=== PATIENT | female | born 1950 | race Caucasian/White ===

== ENCOUNTER 2025-07-23 13:53 | Inpatient (IN) | payer MEDICARE, SELFPAY ==
[2025-07-23] VITALS (11 sets, daily range): BP systolic 141–203; BP diastolic 77–131; PULSE 109–138; RESP 17–22; TEMP 36.5–36.9; O2SAT 90–95; BMI 29.0; BMI 29.8
--- NOTE | 2025-07-23 14:11 | W.ED.NAVMDI ---
HPI - Nausea/Vomiting/Diarrhea General: Chief complaint: Nausea/Vomiting/Diarrhea Stated complaint: NVD Time Seen by Provider: 07/23/25 13:55 History of Present Illness: 75-year-old female returns emergency room with complaints of persistent nausea vomiting began 3 days ago. She has taken Vistaril and Xanax with no relief. She has continued to have bowel movements for this time she had a couple of loose bowel movements last day and a half has been formed stools. Previous abdominal surgeries include appendectomy and bowel obstruction x 2. No hematemesis or coffee-ground emesis. No fever sweats chills no dysuria urgency or frequency Associated nausea: Yes Associated symtoms: Reports bloating and nausea; Denies chest pain or dysuria Related Data Home Medications ?Medication ?Instructions ?Recorded ?Confirmed alprazolam 0.25 mg tablet 0.25 mg PO QID 07/23/25 07/23/25 atorvastatin 10 mg tablet 10 mg PO DAILY 07/23/25 07/23/25 cyclobenzaprine 5 mg tablet 5 mg PO TID PRN Muscle Spasm 07/23/25 07/23/25 duloxetine 60 mg capsule,delayed 60 mg PO DAILY 07/23/25 07/23/25 release gabapentin 300 mg capsule 300 mg PO BID 07/23/25 07/23/25 glimepiride 2 mg tablet 2 mg PO DAILY 07/23/25 07/23/25 hydroxyzine HCl 25 mg tablet 25 mg PO QID PRN Anxiety 07/23/25 07/23/25 losartan 50 mg tablet 50 mg PO DAILY 07/23/25 07/23/25 metformin 500 mg tablet,extended 500 mg PO BID 07/23/25 07/23/25 release 24 hr metoprolol tartrate 50 mg tablet 50 mg PO BID 07/23/25 07/23/25 nitroglycerin 0.4 mg sublingual 0.4 mg sublingual .Q5MIN PRN 07/23/25 07/23/25 tablet unstable angina omeprazole 20 mg capsule,delayed 20 mg PO DAILY 07/23/25 07/23/25 release semaglutide 2 mg/dose (8 mg/3 mL) 8 mg SUBCUT Q7D 07/23/25 07/23/25 subcutaneous pen injector (Ozempic) tramadol 50 mg tablet 50 - 100 mg PO QID PRN Pain 07/23/25 07/23/25 venlafaxine 150 mg 150 mg PO DAILY 07/23/25 07/23/25 capsule,extended release 24 hr Allergies Allergy/AdvReac Type Severity Reaction Status Date / Time erythromycin base Allergy ADR-Gastrointestinal Verified 07/23/25 14:00 Upset Review of Systems Const: Denies: fever(s) or chills Card: Denies: chest pain Resp: Denies: dyspnea GI: Reports: abdominal pain, nausea, vomiting and bloating; Denies: hematemesis, coffee ground emesis, hematochezia or melena : Denies: dysuria, urinary frequency or urinary urgency Musc: Denies: neck pain or back pain Skin/Breast: Denies: rash Physical Exam Const: COMMON NORMALS: no acute distress GENERAL APPEARANCE: cooperative and comfortable ORIENTATION/CONSCIOUSNESS: Yes awake, Yes oriented to person, Yes oriented to place and Yes oriented to time HENMT: COMMON NORMALS: normocephalic, atraumatic and hearing grossly normal bilaterally HEAD & SCALP: normocephalic and atraumatic Resp: COMMON NORMALS: normal respiratory effort, No retractions, No use of accessory muscles and clear to auscultation bilaterally AUSCULTATION: clear to auscultation bilaterally Cardio: COMMON NORMALS: regular rate, regular rhythm and No murmurs present (Cardio) RATE: regular rate RHYTHM: regular rhythm GI: COMMON NORMALS: Soft to palpation and No hepatosplenomegaly present AUSCULTATION: Yes normoactive bowel sounds PALPATION: Yes Soft to palpation, No Tenderness to palpation present (GI), No Guarding due to palpation present (GI) and Yes No hepatosplenomegaly present Extremity: COMMON NORMALS: normal to inspection, capillary refill normal, no clubbing, cyanosis or edema, no calf tenderness and no pedal edema Neuro: SENSORIUM/ORIENTATION: Yes oriented to person, Yes oriented to place and Yes oriented to time Skin: COMMON NORMALS: no rashes or lesions noted GENERAL SKIN EXAM: no rashes or lesions noted Course Vital Signs: Vital signs: Vital Signs Temperature 97.7 F 07/23/25 13:55 Pulse Rate 128 H 07/23/25 17:32 Respiratory Rate 18 07/23/25 17:21 Blood Pressure 163/104 07/23/25 17:32 Pulse Oximetry 94 07/23/25 17:32 Oxygen Delivery Me thod Room Air 07/23/25 13:55 MDM - Nausea/Vomiting/Diarrhea Medical Decision Making Flat and upright shows questionable loops of bowel CT was ordered along with lactic acid. Patient was persistently tachycardic even after initial dose of fluids. Lactic acid elevated at 2.9 follow-up was 2.6 after fluids she has been given sepsis fluid bolus started on Zosyn and cultures were done she has a partial bowel obstruction. Discussed with surgery as well as with hospitalist will admit to the [facility] NG to be placed. Dr. Deutsch will see. Orders are written. Medical Records I reviewed the patient's medical records. Lab Data I reviewed the patient's lab results. 07/23/25 14:13 07/23/25 14:13 Radiology Impressions Chest/Abdomen X-ray 07/23/25 14:24 IMPRESSION: 1. Single mildly dilated, gas-filled loop of small bowel in the central abdomen. The nonspecific appearance could reflect ileus, enteritis or early/partial obstruction. 2. No acute disease otherwise identified. Abdomen/Pelvis CT 07/23/25 15:41 IMPRESSION: A localized group of distended small bowel containing gas and fluid levels is present in the left mid abdomen. The appearance raises concern for a paraduodenal hernia, without complete obstruction. Continued evaluation can include small bowel follow-through and/or close clinical and imaging follow-up. Laboratory Results WBC 10.68 10^3/uL (3.29-11.43) 07/23/25 14:13 RBC 4.84 10^6/uL (3.85-5.65) 07/23/25 14:13 Hgb 14.10 g/dL (11.27-16.99) 07/23/25 14:13 Hct 42.8 % (36-47) 07/23/25 14:13 MCV 88.4 fl (85-98) 07/23/25 14:13 MCH 29.1 pg (27-33) 07/23/25 14:13 MCHC 32.9 g/dL (30-55) 07/23/25 14:13 RDW 12.7 % (12.1-15.1) 07/23/25 14:13 Plt Count 340 10^3/cmm (157-399) 07/23/25 14:13 MPV 10.0 fL (7.4-10.4) 07/23/25 14:13 Neut % (Auto) 73.0 % 07/23/25 14:13 Lymph % (Auto) 18.9 % 07/23/25 14:13 Perry % (Auto) 6.6 % 07/23/25 14:13 Eos % (Auto) 0.3 % 07/23/25 14:13 Baso % (Auto) 0.7 % 07/23/25 14:13 Neut # (Auto) 7.79 10^3/uL (1.8-7.7) H 07/23/25 14:13 Lymph # (Auto) 2.0 10^3/uL (0.8-4.8) 07/23/25 14:13 Perry # (Auto) 0.7 10^3/uL (0.2-0.9) 07/23/25 14:13 Eos # (Auto) 0.0 10^3/uL (0.0-0.8) 07/23/25 14:13 Baso # (Auto) 0.1 10^3/uL (0.0-0.1) 07/23/25 14:13 Nucleated RBC % (auto) 0 % 07/23/25 14:13 Nucleated RBCs # 0.0 /100WBC 07/23/25 14:13 Sodium 137 mmol/L (136-145) 07/23/25 14:13 Potassium 3.6 mmol/L (3.5-5.1) 07/23/25 14:13 Chloride 97 mmol/L (98-107) L 07/23/25 14:13 Carbon Dioxide 23 mmol/L (22-29) 07/23/25 14:13 Anion Gap 20.6 (5-19) H 07/23/25 14:13 BUN 11 mg/dL (8-23) 07/23/25 14:13 Creatinine 1.0 mg/dL (0.5-0.9) H 07/23/25 14:13 GFR Calculation Not Reportable 07/23/25 14:13 Glucose 283 mg/dL (65-115) H 07/23/25 14:13 POC Glucose 281 mg/dL (70-110) H 07/23/25 14:41 Calculated Osmolality 294 mOsm/kg (285-295) 07/23/25 14:13 Lactic Acid 2.9 mmol/L (0.5-2.2) H 07/23/25 14:13 Lactic Acid (Sepsis) 2.6 mmol/L (0.5-2.2) H 07/23/25 15:50 Calcium 10.1 mg/dL (8.5-10.5) 07/23/25 14:13 Total Bilirubin 0.4 mg/dL (0.15-1.2) 07/23/25 14:13 AST 17 U/L (0-32) 07/23/25 14:13 ALT 14 U/L (0-33) 07/23/25 14:13 Alkaline Phosphatase 147 U/L (35-105) H 07/23/25 14:13 Total Protein 8.5 g/dL (6.6-8.7) 07/23/25 14:13 Albumin 4.3 g/dL (3.5-5.2) 07/23/25 14:13 Globulin 4.2 g/dL (1.3-4.6) 07/23/25 14:13 Lipase 23 U/L (13-60) 07/23/25 14:13 Urine Color Yellow (Yellow) 07/23/25 15: Urine Appearance Cloudy (CLEAR) A 07/23/25: Urine pH 6.0 (5-7) 07/23/25 15: Ur Specific [place] 1.019 (1.005-1.030) 07/23/25: Urine Protein 1+ (Negative) A 07/23/25 Urine Glucose (UA) Trace (Normal) H 07/23/25: Urine Ketones 2+ (Negative) H 07/23/25: Urine Blood Negative (Negative) 07/23/25: Urine Nitrate Negative (Negative) 07/23/25: Urine Bilirubin Negative (Negative) 07/23/25 Urine Urobilinogen 1.0 mg/dL (Negative) 07/23/25: Ur Leukocyte Esterase 2+ (Negative) A 07/23/25: Urine RBC 0-2 /hpf (0-2) 07/23/25: Urine WBC 0-5 /hpf (0-5) 07/23/25 15:23 Ur Squamous Epith Cells 11-20 /hpf (0-5) H 07/23/25 15:23 Amorphous Sediment Not Reportable 07/23/25 15:23 Urine Bacteria None seen /hpf (NONE) 07/23/25 15:23 Hyaline Casts 21.92 /lpf 07/23/25 15:23 All radiology interpretation(s) finalized by discharge EKG Data EKG 1: I personally reviewed and interpreted this EKG as follows: Interpretation: EKG 07/23/2025 1420 sinus tachycardia with PVCs rate of 133 MI interval [address] changes noted. 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
[2025-07-23 14:20] LABS: Hematocrit 42.8 % (36-47); Hemoglobin 14.10 g/dL (11.27-16.99); Mean Corpuscular HGB Conc 32.9 g/dL (30-55); Mean Corpuscular Hemoglobin 29.1 pg (27-33); Mean Corpuscular Volume 88.4 fl (85-98); Nucleated Red Blood Cells % 0 %; Platelet Count 340 10^3/cmm (157-399); Red Blood Count 4.84 10^6/uL (3.85-5.65); White Blood Count 10.68 10^3/uL (3.29-11.43)
--- NOTE | 2025-07-23 14:20 | ECG_ITS ---
[employer] Test Date: 2025-07-23 Pat Name: Sherry Garcia Department: Room: Gender: Female Integration Assistant: : 1950 Requested By: Sd Cardona Order Number: [id number] Nury MD: Scott Marx M.D. Measurements Intervals [place] Rate: 133 P: 62 OH: 138 QRS: 2 QRSD: 78 T: 66 QT: 333 QTc: 497 Interpretive Statements SINUS TACHYCARDIA WITH OCCASIONAL VENTRICULAR PREMATURE COMPLEXES LOW QRS VOLTAGE IN PRECORDIAL LEADS [QRS DEFLECTION < 1.0 mV IN CHEST LEADS] NONSPECIFIC ST & T-WAVE ABNORMALITY ABNORMAL RHYTHM ECG No previous ECG available for comparison Electronically Signed On 07-24-2025 15:21:54 FUNDING ANALYST by Scott Marx M.D. [email or web address]
--- NOTE | 2025-07-23 14:24 | XRR_ITS ---
PROCEDURE INFORMATION: Exam: XR Complete Acute Abdomen Series Including Chest Exam date and time: 07/23/2025 2:41 PM Age: 75 years old Clinical indication: Abdominal tenderness and nausea and vomiting; Prior surgery; Surgery date: 6+ months; Surgery type: Appy, small bowel resection x 2; Additional info: Nausea/vomiting; Weakeness; Abdominal pain x 3 days TECHNIQUE: Imaging protocol: Radiologic exam. Complete acute abdomen series, including 2 or more views of the abdomen and a single view chest. COMPARISON: No relevant prior studies available. FINDINGS: Lungs: Normal. No consolidation. Pleural spaces: Normal. No pleural effusions. No pneumothorax. Heart/Mediastinum: Normal. No cardiomegaly. Gastrointestinal tract: Single mildly dilated, gas-filled loop of small bowel in the central abdomen. No other bowel dilatation. Intraperitoneal space: No free intraperitoneal gas. Abdominal mass is not identified. Bones/joints: Severe degenerative disc disease at L3-L4 and L4-L5. Previous cervical spine surgery. Soft tissues: Normal. XR/XR acute abdomen series [id number] IMPRESSION: 1. Single mildly dilated, gas-filled loop of small bowel in the central abdomen. The nonspecific appearance could reflect ileus, enteritis or early/partial obstruction. 2. No acute disease otherwise identified.
[2025-07-23 14:40] LABS: Alanine Aminotransferase 14 U/L (0-33); Albumin Level 4.3 g/dL (3.5-5.2); Alkaline Phosphatase 147 U/L (35-105); Anion Gap 20.6 (5-19); Aspartate Amino Transferase 17 U/L (0-32); Blood Urea Nitrogen 11 mg/dL (8-23); Calcium 10.1 mg/dL (8.5-10.5); Carbon Dioxide 23 mmol/L (22-29); Chloride 97 mmol/L (98-107); Globulin 4.2 g/dL (1.3-4.6); Glucose 283 mg/dL (65-115); Osmolality Calculated 294 mOsm/kg (285-295); Potassium 3.6 mmol/L (3.5-5.1); Sodium 137 mmol/L (136-145); Total Protein 8.5 g/dL (6.6-8.7)
[2025-07-23] MEDS: ondansetron 2 mg/ML SDV 2 mL 4 MG IVP ×2 (14:42→17:58)
[2025-07-23 15:32] LABS: Glucose Urine UA Trace (Normal); Nitrate Urine Negative (Negative); Specific Gravity, Urine 1.019 (1.005-1.030)
[2025-07-23 15:37] LABS: Add Urine Microscopic? YES
--- NOTE | 2025-07-23 15:41 | CTR_ITS ---
PROCEDURE INFORMATION: Exam: CT Abdomen And Pelvis With Contrast Exam date and time: 07/23/2025 3:57 PM Age: 75 years old Clinical indication: Abdominal pain; Generalized; Prior surgery; Surgery date: 6+ months; Surgery type: Bowel obstruction; Additional info: Abd pain TECHNIQUE: Imaging protocol: Computed tomography of the abdomen and pelvis with contrast. Radiation optimization: All CT scans at this facility use at least one of these dose optimization techniques: automated exposure control; mA and/or kV adjustment per patient size (includes targeted exams where dose is matched to clinical indication); or iterative reconstruction. Contrast material: OMNIPAQUE 350; Contrast volume: 100 ml; Contrast route: INTRAVENOUS (IV); COMPARISON: CR XR acute abdomen series [id number] 07/23/2025 2:41 PM RADIATION DOSE METRICS: Total DLP (mGy-cm): 768.63 FINDINGS: Lungs: 4 mm calcified granuloma in the right lower lobe, requiring no follow-up. Liver: Normal. No mass. Gallbladder and biliary ducts: Normal. No calcified stones. No ductal dilation. Pancreas: Normal. No ductal dilation. Spleen: Normal. No splenomegaly. Adrenal glands: Normal. No mass. Kidneys and ureters: Normal. No hydronephrosis. Stomach and bowel: A localized group of distended small bowel containing gas and fluid levels is present in the left mid abdomen. No other bowel dilatation. No pericolonic or perienteric inflammatory changes. Appendix: No evidence of appendicitis. Intraperitoneal space: Unremarkable. No free air. No significant fluid collection. Vasculature: Unremarkable. No abdominal aortic aneurysm. Lymph nodes: Unremarkable. No enlarged lymph nodes. Urinary bladder: Unremarkable as visualized. Reproductive: Unremarkable as visualized. Bones/joints: Severe degenerative disc disease at L3-L4, L4-L5 and L5-S1. Soft tissues: Benign-appearing calcifications in both breasts. CT/CT abdomen pelvis w con* [id number] IMPRESSION: A localized group of distended small bowel containing gas and fluid levels is present in the left mid abdomen. The appearance raises concern for a paraduodenal hernia, without complete obstruction. Continued evaluation can include small bowel follow-through and/or close clinical and imaging follow-up.
[2025-07-23 15:49] LABS: UA Slide Review UA Slide Review Perf
[2025-07-23 15:57] LABS: Lactic Sepsis W/Reflex 2.9 mmol/L (0.5-2.2)
[2025-07-23 15:58] LABS: Lipase 23 U/L (13-60); Reflex Lactate Order REFLEX LACTIC ORDERD
[2025-07-23] MEDS: iohexol 350 mg/mL 500 mL Btl (per mL) IV (16:01)
[2025-07-23 16:21] LABS: Lactic Acid level (Lactate) 2.6 mmol/L (0.5-2.2)
[2025-07-23] MEDS: piperacillin-tazobactam 3.375 GM in sodium chloride 0.9% (plus) 50 ML IV (16:45)
--- NOTE | 2025-07-23 18:05 | XRR_ITS ---
PROCEDURE INFORMATION: Exam: XR Chest Exam date and time: 07/23/2025 7:08 PM Age: 75 years old Clinical indication: Device placement; Ng tube; Additional info: Ng placement TECHNIQUE: Imaging protocol: Radiologic exam of the chest. Views: 1 view. COMPARISON: CR XR acute abdomen series [id number] 07/23/2025 2:41 PM FINDINGS: Tubes, catheters and devices: Interval placement of an NG tube, with the tip approximating the body of the stomach. Lungs: Interval development of mild interstitial thickening which represents atelectatic, compressive changes or mild edema. Pleural spaces: Unremarkable. No pleural effusion. No pneumothorax. Heart/Mediastinum: Unremarkable. No cardiomegaly. Bones/joints: Unremarkable. XR/XR chest 1V portable [id number] IMPRESSION: 1. Interval development of mild interstitial thickening which represents atelectatic, compressive changes or mild edema. Developing left lung base infiltrate is a possibility. 2. NG tube in place.
[2025-07-23] MEDS: morphine 4 mg/mL SDV 1 mL IVP (18:10)
--- NOTE | 2025-07-23 18:17 | PM.CONSULT ---
Providers/Reason For Consult Consulting Physician/Specialty*: General Surgery Reason for Consult*: Possible paraduodenal hernia Attending Physician: Alli Blackwell MD Primary Care Provider: Robert Vo MD History of Present Illness History of Present Illness Sherry Garcia is a 75 year old female Who presents to the hospital with 3 days of nausea and vomiting. Denies significant abdominal pain, has been passing gas and has been passing his stool last bowel movement was today and currently passing gas. According to the patient she has been having multiple episodes of nausea and vomiting. Has not been able to take her BP meds. She has extensive surgical history, had an appendectomy in the remote past and after that had 2 episodes of SBO both of them required surgery and according to the patient bowel resection. Last episode of SBO was 1997. Review of Systems General: Reports: 10 or more systems reviewed and unremarkable except in HPI and below Medications/Allergies Home Medications ?Medication ?Instructions ?Recorded ?Confirmed ?Last Taken ?Type alprazolam 0.25 mg tablet 0.25 mg PO QID 07/23/25 07/23/25 07/20/25 History atorvastatin 10 mg tablet 10 mg PO DAILY 07/23/25 07/23/25 07/20/25 History cyclobenzaprine 5 mg tablet 5 mg PO TID PRN Muscle Spasm 07/23/25 07/23/25 Unknown History duloxetine 60 mg capsule,delayed 60 mg PO DAILY 07/23/25 07/23/25 07/20/25 History release gabapentin 300 mg capsule 300 mg PO BID 07/23/25 07/23/25 07/20/25 History glimepiride 2 mg tablet 2 mg PO DAILY 07/23/25 07/23/25 07/20/25 History hydroxyzine HCl 25 mg tablet 25 mg PO QID PRN Anxiety 07/23/25 07/23/25 Unknown History losartan 50 mg tablet 50 mg PO DAILY 07/23/25 07/23/25 07/20/25 History metformin 500 mg tablet,extended 500 mg PO BID 07/23/25 07/23/25 07/20/25 History release 24 hr metoprolol tartrate 50 mg tablet 50 mg PO BID 07/23/25 07/23/25 07/20/25 History nitroglycerin 0.4 mg sublingual 0.4 mg sublingual .Q5MIN PRN 07/23/25 07/23/25 Unknown History tablet unstable angina omeprazole 20 mg capsule,delayed 20 mg PO DAILY 07/23/25 07/23/25 07/20/25 History release semaglutide 2 mg/dose (8 mg/3 mL) 8 mg SUBCUT Q7D 07/23/25 07/23/25 07/22/25 History subcutaneous pen injector (Ozempic) tramadol 50 mg tablet 50 - 100 mg PO QID PRN Pain 07/23/25 07/23/25 Unknown History venlafaxine 150 mg 150 mg PO DAILY 07/23/25 07/23/25 07/20/25 History capsule,extended release 24 hr Allergies Allergy/AdvReac Type Severity Reaction Status Date / Time erythromycin base Allergy ADR-Gastrointestinal Verified 07/23/25 14:00 Upset Current Medications Generic Name Dose Route Start Last Admin Trade Name Freq PRN Reason Stop Dose Admin Sodium Chloride 1,000 mls @ 150 mls/hr 07/23/25 17:43 07/23/25 18:13 Sodium Chloride 0.9% IV 150 mls/hr .Q6H40M ZOHAIB Administration Morphine Sulfate 4 mg 07/23/25 17:43 07/23/25 18:10 Morphine 4 Mg/Ml Sdv 1 Ml IVP 4 mg Q4H PRN Administration SEVERE PAIN Ondansetron HCl 4 mg 07/23/25 17:43 07/23/25 17:58 Ondansetron 2 Mg/Ml Sdv 2 Ml IVP 4 mg Q6H PRN Administration NAUSEA AND VOMITING Vitals/I&O/Wt Last Vital Signs Temp 97.7 F 07/23/25 13:55 Pulse 128 H 07/23/25 17:32 Resp 20 H 07/23/25 18:10 BP 163/104 07/23/25 17:32 Pulse Ox 94 07/23/25 17:32 O2 Del Method Room Air 07/23/25 13:55 07/23/25 07/23/25 07/23/25 06:59 14:59 22:59 Intake Total 3499.41 / 3499.41 Balance 3499.41 / 3499.41 Weight last 48 hrs Weight 180 lb Physical Exam GI: OTHER: Abdominal examination is benign the abdomen is soft is nontender is nondistended there is bowel sounds. Data 07/23/25 14:13 07/23/25 14:13 A&P Assessment and plan 1. Intestinal adhesions with partial obstruction: Plan: I had extensive discussion with the patient regarding the symptoms as well as the findings. After complete history physical examination review of available clinical data the following is my assessment. It is unlikely that the patient symptoms are caused by a paraduodenal hernia. I have reviewed the imaging several times and I failed to identify any area of concern where a paraduodenal hernia may have a core. Laboratory workup is almost unremarkable except for mild elevation of the lactate. She is hypertensive and also tachycardic but has not been able to take her blood pressure medications and anxiety medication at home which is concordant with the findings. I agree with NG tube decompression, depending on the output of the NG tube we most likely will proceed with a Gastrografin trial tomorrow morning to evaluate for any possible sources of obstruction. 18 Thai NG tube was placed at the bedside without complications. After initial decompression and fluid resuscitation will continue to monitor labs and abdominal exam, in the case of clinical status changes we may have to discuss the possibility of surgery although I think the likelihood of needing surgical intervention at this point is low as patient clinical picture does not match a significant bowel obstruction or bowel suffering. All other management per medical team. I would recommend we keep the patient in a strict n.p.o. all medications should be given through the IV, continue NG tube to low intermittent suction. Continue to monitor labs, agree with antibiotic therapy empirically. General surgery will continue to follow. PDMP PDMP Reviewed: Not Reviewed Coding Level of Care Code Acute Code for [facility] Fw Diagnoses Intestinal adhesions with partial obstruction K56.51
[2025-07-23] MEDS: LORazepam 2 mg/mL INJ 1 mL 1 MG IVP (18:41)
--- NOTE | 2025-07-23 18:57 | PM.HP ---
Providers/Chief Complaint Admitting Physician: Alli Blackwell MD Primary Care Provider: Robert Vo MD Chief Complaint: NVD History of Present Illness Sherry Garcia is a 75 year old female with prior medical history of HTN, DM, intestinal adhesions with partial obstruction presenting with complaints of abdominal pain. Patient has past history of SBO requiring surgery, last episode was in 1997. She has also had an appendectomy. For this encounter, patient endorses abdominal pain x3 days, nausea, and vomiting. She is passing flatus. Last BM was today. In the ED, BP 163/104, HR 128, RR 20, O2 94%, T97.7. WBC 10.68, Hgb 14.10, PLT 340. Creatinine 1.0, BUN 11, WNL. Lactic 2.9. Glucose 283. AST/ALT WNL, ALP 147. Urinalysis; cloudy, 1+ protein, trace urine glucose, 2+ ketones, 2+ leukocytes, 0?[address] abdomen pelvis, abdominal xray, CXR completed - see full results. Will admit to Hospitalist Service for further evaluation and treatment. Abdominal xray; Single mildly dilated, gas-filled loop of small bowel in the central abdomen, nonspecific appearance could reflect ileus, enteritis or early/partial obstruction, no acute disease otherwise identified CT abdomen pelvis; A localized group of distended small bowel containing gas and fluid levels is present in the left mid abdomen, the appearance raises concern for a para-duodenal hernia, without complete obstruction, continued evaluation can include small bowel follow-through and/or close clinical and imaging follow-up. CXR; Interval development of mild interstitial thickening which represents atelectatic, compressive changes or mild edema, developing left lung base infiltrate is a possibility, NG tube in place. Review of Systems Const: Denies: fever(s) or chills Card: Denies: chest pain Resp: Denies: dyspnea GI: Reports: abdominal pain, nausea, vomiting and bloating; Denies: hematemesis, coffee ground emesis, hematochezia or melena : Denies: dysuria, urinary frequency or urinary urgency Musc: Denies: neck pain or back pain Skin/Breast: Denies: rash Medications/Allergies Home Medications ?Medication ?Instructions ?Recorded ?Confirmed ?Last Taken ?Type alprazolam 0.25 mg tablet 0.25 mg PO QID 07/23/25 07/23/25 07/20/25 History atorvastatin 10 mg tablet 10 mg PO DAILY 07/23/25 07/23/25 07/20/25 History cyclobenzaprine 5 mg tablet 5 mg PO TID PRN Muscle Spasm 07/23/25 07/23/25 Unknown History duloxetine 60 mg capsule,delayed 60 mg PO DAILY 07/23/25 07/23/25 07/20/25 History release gabapentin 300 mg capsule 300 mg PO BID 07/23/25 07/23/25 07/20/25 History glimepiride 2 mg tablet 2 mg PO DAILY 07/23/25 07/23/25 07/20/25 History hydroxyzine HCl 25 mg tablet 25 mg PO QID PRN Anxiety 07/23/25 07/23/25 Unknown History losartan 50 mg tablet 50 mg PO DAILY 07/23/25 07/23/25 07/20/25 History metformin 500 mg tablet,extended 500 mg PO BID 07/23/25 07/23/25 07/20/25 History release 24 hr metoprolol tartrate 50 mg tablet 50 mg PO BID 07/23/25 07/23/25 07/20/25 History nitroglycerin 0.4 mg sublingual 0.4 mg sublingual .Q5MIN PRN 07/23/25 07/23/25 Unknown History tablet unstable angina omeprazole 20 mg capsule,delayed 20 mg PO DAILY 07/23/25 07/23/25 07/20/25 History release semaglutide 2 mg/dose (8 mg/3 mL) 8 mg SUBCUT Q7D 07/23/25 07/23/25 07/22/25 History subcutaneous pen injector (Ozempic) tramadol 50 mg tablet 50 - 100 mg PO QID PRN Pain 07/23/25 07/23/25 Unknown History venlafaxine 150 mg 150 mg PO DAILY 07/23/25 07/23/25 07/20/25 History capsule,extended release 24 hr Allergies Allergy/AdvReac Type Severity Reaction Status Date / Time erythromycin base Allergy ADR-Gastrointestinal Verified 07/23/25 14:00 Upset Vitals/I&O/Wt Last Vital Signs Temp 98.1 F 07/23/25 18:44 Pulse 127 H 07/23/25 18:44 Resp 18 07/23/25 18:44 BP 203/131 07/23/25 18:44 Pulse Ox 95 07/23/25 18:44 O2 Del Method Room Air 07/23/25 18:44 07/23/25 07/23/25 07/23/25 06:59 14:59 22:59 Intake Total 3499.41 / 3499.41 Balance 3499.41 / 3499.41 Weight last 48 hrs Weight 83.906 kg Weight 81.647 kg Physical Exam Const: COMMON NORMALS: patient oriented x3 and alert HENMT: COMMON NORMALS: normocephalic and atraumatic Eye: COMMON NORMALS: Equal, round and reactive pupils present and EOMs intact bilaterally Neck/C-Spine: COMMON NORMALS: full ROM Chest: COMMONS NORMALS: normal inspection of the chest GI: OTHER: Soft, non tender, but bloated Back/Pelvis: COMMON NORMALS: no CVA tenderness Neuro: COMMON NORMALS: patient oriented x3 Psych: COMMON NORMALS: mental status grossly normal Data 07/23/25 14:13 07/23/25 14:13 A&P Assessment and plan 1. Hypertension: Today 163/104, HR 128 On home Metoprolol and losartan - hold PO meds Collaborated with [facility] [phone] for Labetalol IV Monitor BP 2. Diabetes mellitus: Glucose 283 On home metformin, Ozempic, glimepiride - hold for now A1c pending Hyperglycemia/hypoglycemia protocol 3. Intestinal adhesions with partial obstruction: WBC 10.68, Hgb 14.10, PLT 340 Lactic 2.9 IVF Pain management Zosyn Strict NPO -holding meds until AM procedure, IV meds placed by ED and General Surgery Decompression 18 Fr NG-tube and NG-tube management daily Repeat lactic in AM General Surgery consulted, recommendations appreciated Planning for gastrografin trial tomorrow morning to evaluate for any possible sources of obstruction Abdominal xray; Single mildly dilated, gas-filled loop of small bowel in the central abdomen, nonspecific appearance could reflect ileus, enteritis or early/partial obstruction, no acute disease otherwise identified CT abdomen pelvis; A localized group of distended small bowel containing gas and fluid levels is present in the left mid abdomen, the appearance raises concern for a para-duodenal hernia, without complete obstruction, continued evaluation can include small bowel follow-through and/or close clinical and imaging follow-up. CXR; Interval development of mild interstitial thickening which represents atelectatic, compressive changes or mild edema, developing left lung base infiltrate is a possibility, NG tube in place. 4. Nausea and vomiting: Zofran I&O PDMP PDMP Reviewed: Not Reviewed Attestations Medical Necessity Statement*: Continued hospitalization for > 2 midnights to monitor for partial bowel obstruction, decompression, general surgery planning, pain management, and general medical management. Diagnoses Hypertension I10 Diabetes mellitus E11.9 Intestinal adhesions with partial obstruction K56.51 Nausea and vomiting R11.2 Comment 70
[2025-07-23] MEDS: labetalol 5 mg/mL SDV 20mL 20 MG IVP (20:41)
[2025-07-23] MEDS: phenol oral Spray 177 mL 5 SPRAY MUCOUS MEM (20:55)
[2025-07-24] VITALS (14 sets, daily range): BP systolic 100–157; BP diastolic 58–113; PULSE 105–129; RESP 16–18; TEMP 36.4–37; O2SAT 91–96
[2025-07-24] MEDS: morphine 4 mg/mL SDV 1 mL IVP ×2 (00:02→08:08)
[2025-07-24] MEDS: piperacillin-tazobactam 3.375 GM in sodium chloride 0.9% (plus) 50 ML IV ×3 (00:03→16:44)
[2025-07-24] MEDS: ondansetron 2 mg/ML SDV 2 mL 4 MG IVP ×3 (00:03→16:45)
--- NOTE | 2025-07-24 01:21 | PC.NURSE ---
no decub, no open sores, PIV CDI- no redness, flushes well
[2025-07-24 04:00] LABS: Hematocrit 36.2 % (36-47); Hemoglobin 11.60 g/dL (11.27-16.99); Mean Corpuscular HGB Conc 32.0 g/dL (30-55); Mean Corpuscular Hemoglobin 29.2 pg (27-33); Mean Corpuscular Volume 91.2 fl (85-98); Nucleated Red Blood Cells % 0 %; Platelet Count 337 10^3/cmm (157-399); Red Blood Count 3.97 10^6/uL (3.85-5.65); White Blood Count 10.37 10^3/uL (3.29-11.43)
[2025-07-24 04:19] LABS: Alanine Aminotransferase 10 U/L (0-33); Albumin Level 3.5 g/dL (3.5-5.2); Alkaline Phosphatase 116 U/L (35-105); Anion Gap 12.6 (5-19); Aspartate Amino Transferase 16 U/L (0-32); Blood Urea Nitrogen 9 mg/dL (8-23); Calcium 8.4 mg/dL (8.5-10.5); Carbon Dioxide 26 mmol/L (22-29); Chloride 107 mmol/L (98-107); Globulin 3.1 g/dL (1.3-4.6); Glucose 191 mg/dL (65-115); Magnesium 1.5 mg/dL (1.7-2.3); Osmolality Calculated 298 mOsm/kg (285-295); Potassium 3.6 mmol/L (3.5-5.1); Sodium 142 mmol/L (136-145); Total Protein 6.6 g/dL (6.6-8.7)
[2025-07-24 04:20] LABS: Lactate (Lactic Acid level) 1.8 mmol/L (0.5-2.2)
[2025-07-24 04:26] LABS: Estmated Average Glucose 160; Hemoglobin A1C 7.2 % (4.0-6.0)
--- NOTE | 2025-07-24 10:09 | P.PN_ITS ---
Subjective 2 Subjective: Patient is doing okay, still having some nausea, NG output has been about 300 cc over the last 12 hours which appears to be ileus. No significant abdominal pain, has not passed gas since being admitted. Vitals/I&O/Wt Last Vital Signs Temp 97.8 F 07/24/25 07:28 Pulse 107 H 07/24/25 07:28 Resp 16 07/24/25 08:08 BP 129/70 07/24/25 07:28 Pulse Ox 95 07/24/25 07:28 O2 Del Method Nasal Cannula 07/24/25 07:28 07/23/25 07/24/25 07/24/25 22:59 06:59 14:59 Intake Total 3499.41 / 3499.41 1990 / 5489.41 Output Total 630 / 630 Balance 3499.41 / 3499.41 1360 / 4859.41 Weight last 48 hrs Weight 183 lb 9.6 oz Weight 184 lb 15.68 oz Weight 180 lb Physical Exam 2 GI: OTHER: Benign abdominal exam abdomen soft nontender not distended There is good bowel sounds Data 07/24/25 03:22 07/24/25 03:22 A&P Assessment and plan 1. Intestinal adhesions with partial obstruction: 2. Nausea and vomiting: Plan: Patient showing good progression, white count is normal, lactate level is now normal, no abdominal pain, she does still have some nausea. NG output has been about 300 cc. With patient current clinical status findings and taking consideration that she is still having nausea we will plan for decompression for another 24 hours before proceeding with a Gastrografin trial and deciding on next steps. In the case of changes in clinical status we might decide to proceed with surgery, although we have had extensive discussion with the patient and she understand that this will be a high risk procedure due to multiple intra-abdominal surgeries and the fact that she was told during her last surgery that she had extensive intra-abdominal adhesions. She shows understanding agrees with the plan General Surgery will continue to follow PDMP PDMP Reviewed: Not Reviewed Attestations 2 Medical Necessity Statement*: Per medical team Coding Level of Care Code Acute Code for Chg Fwd Diagnoses Intestinal adhesions with partial obstruction K56.51 Nausea and vomiting R11.2
--- NOTE | 2025-07-24 12:39 | P.PN_ITS ---
Subjective 2 Subjective: - Patient was seen this morning - Family numbers at bedside - She reports that she had 2 large bowel movements yesterday - She passed gas yesterday - Has not had any bowel movements - She does feel nauseous this morning - Has not passed any gas, has not had a bowel movement -Her NG tube output has been 300 cc, baldo banuelos n.p.o. - Discussed with family members about CT scan findings, discussed plans of general surgery about doing Gastrografin study this afternoon based on her clinical progress Vitals/I&O/Wt Last Vital Signs Temp 98.0 F 07/24/25 11:28 Pulse 114 H 07/24/25 11:28 Resp 16 07/24/25 11:28 BP 139/84 07/24/25 11:28 Pulse Ox 96 07/24/25 11:28 O2 Del Method Nasal Cannula 07/24/25 11:28 07/23/25 07/24/25 07/24/25 22:59 06:59 14:59 Intake Total 3499.41 / 3499.41 1990 / 5489.41 50 / 50 Output Total 630 / 630 Balance 3499.41 / 3499.41 1360 / 4859.41 50 / 50 Weight last 48 hrs Weight 83.28 kg Weight 83.906 kg Weight 81.647 kg Physical Exam 2 Const: COMMON NORMALS: no acute distress and patient oriented x3 HENMT: OTHER: Nasogastric tube in place Resp: COMMON NORMALS: normal respiratory effort, No retractions, No use of accessory muscles and clear to auscultation bilaterally AUSCULTATION: clear to auscultation bilaterally Cardio: COMMON NORMALS: regular rate, regular rhythm, S1 normal heart sound present and S2 normal heart sound present RATE: regular rate RHYTHM: r egular rhythm HEART SOUNDS: S1 normal heart sound present and S2 normal heart sound present GI: OTHER: Abdomen is soft, slightly distended, scattered bowel sounds, no guarding, rebound, no rigidity Extremity: COMMON NORMALS: no pedal edema Neuro: COMMON NORMALS: patient oriented x3 Psych: COMMON NORMALS: mental status grossly normal Data 07/24/25 03:22 07/24/25 03:22 A&P Assessment and plan 1. Hypertension: 2. Diabetes mellitus: 3. Intestinal adhesions with partial obstruction: 4. Nausea and vomiting: Zofran I&O Plan: Concerns for partial small bowel obstruction -With concerns for the adhesions -CT scan showing CT/CT abdomen pelvis w con* [id number] IMPRESSION: A localized group of distended small bowel containing gas and fluid levels is present in the left mid abdomen. The appearance raises concern for a paraduodenal hernia, without complete obstruction. Continued evaluation can include small bowel follow-through and/or close clinical and imaging follow-up. -With history of recurrent bowel obstructions requiring surgery, Plan - NG tube in place, monitor output - Zofran for nausea - Reglan for nausea - Dilaudid for pain control - Ativan for as needed anxiety -IV fluids -IV Zosyn - N.p.o. -Monitor lactic acid - Serial abdominal exams -Type 2 diabetes mellitus, low-dose sliding scale -Hypertension, as needed hydralazine - Full code - SCDs Lovenox for DVT prophylaxis PDMP PDMP Reviewed: Not Reviewed Attestations 2 Medical Necessity Statement*: Patient requires admission for partial small bowel obstruction Diagnoses Hypertension I10 Diabetes mellitus E11.9 Intestinal adhesions with partial obstruction K56.51 Nausea and vomiting R11.2
[2025-07-24] MEDS: metoclopramide 5 mg/mL SDV 2 mL IVP ×2 (12:51→17:29)
[2025-07-24] MEDS: HYDROmorphone 0.5 MG/0.5 ML INJ 1 MG IVP ×2 (12:51→19:53)
[2025-07-24] MEDS: magnesium sulfate premix 1 GM/100 ML PIGGYBACK IV (12:55)
--- NOTE | 2025-07-24 17:07 | PM.MISC ---
Miscellaneous Note Purpose of Documentation: Update on patient Care Note: I evaluated the patient this afternoon, no abdominal pain continues to have some episodes of nausea. Has not passed any more gas. The total output for the NG tube has been 400, 100 cc over the whole day. During chart review this morning I realized that the patient has been taking Ozempic, with this information I decided to give her 1 dose of Reglan as I do think the possibility of an adverse drug reaction causing the patient's symptoms is significant as the patient has had more than 25 years without any episodes of SBO. She tolerated Reglan well with no increased abdominal pain or cramping. During my interview I asked the patient about the Ozempic and she states that since the moment she initiated the medication she has had significant symptoms associated with the GI symptoms. The new onset of vomiting and p.o. intolerance coincides with the date of injection. I have explained to the patient that while it is impossible to actually verify that this medication has caused her current symptoms I will advise that she does not take Ozempic in the future as it has been shown to increase the risk for bowel obstruction and perforation and in high risk patients as herself with history of previous bowel obstruction requiring resection the medication is not excellent fit. She shows understanding the plan is for Gastrografin trial tomorrow.
[2025-07-24] MEDS: pantoprazole 40 mg SDV IVP (17:29)
--- NOTE | 2025-07-24 23:03 | PC.NURSE ---
Patient is strict NPO, patient BG was 168 indicating need for 1 unit of insulin. Nurse contacted provider to see if he wanted to hold this dose. Provider Sanju instructed nurse to hold current dose of insulin.
[2025-07-25] VITALS (8 sets, daily range): BP systolic 112–153; BP diastolic 71–98; PULSE 90–128; RESP 16–20; TEMP 36.2–36.8; O2SAT 93–96
[2025-07-25] MEDS: ondansetron 2 mg/ML SDV 2 mL 4 MG IVP ×2 (00:03→10:05)
[2025-07-25] MEDS: piperacillin-tazobactam 3.375 GM in sodium chloride 0.9% (plus) 50 ML IV ×4 (00:04→23:12)
[2025-07-25] MEDS: metoprolol tartrate 1 mg/1 mL SDV 5 mL 10 MG IVP (02:54)
[2025-07-25 03:09] LABS: Hematocrit 37.8 % (36-47); Hemoglobin 12.10 g/dL (11.27-16.99); Mean Corpuscular HGB Conc 32.0 g/dL (30-55); Mean Corpuscular Hemoglobin 29.0 pg (27-33); Mean Corpuscular Volume 90.6 fl (85-98); Nucleated Red Blood Cells % 0 %; Platelet Count 370 10^3/cmm (157-399); Red Blood Count 4.17 10^6/uL (3.85-5.65); White Blood Count 10.78 10^3/uL (3.29-11.43)
[2025-07-25 03:23] LABS: Alanine Aminotransferase 11 U/L (0-33); Albumin Level 3.9 g/dL (3.5-5.2); Alkaline Phosphatase 135 U/L (35-105); Anion Gap 15.9 (5-19); Aspartate Amino Transferase 17 U/L (0-32); Blood Urea Nitrogen 5 mg/dL (8-23); Calcium 8.3 mg/dL (8.5-10.5); Carbon Dioxide 25 mmol/L (22-29); Chloride 101 mmol/L (98-107); Globulin 3.6 g/dL (1.3-4.6); Glucose 210 mg/dL (65-115); Magnesium 1.6 mg/dL (1.7-2.3); Osmolality Calculated 291 mOsm/kg (285-295); Sodium 139 mmol/L (136-145); Total Protein 7.5 g/dL (6.6-8.7)
[2025-07-25 03:25] LABS: Potassium 2.9 mmol/L (3.5-5.1)
[2025-07-25 03:26] LABS: Lactate (Lactic Acid level) 2.1 mmol/L (0.5-2.2)
[2025-07-25] MEDS: lidocaine 1% 5 ML in potassium chloride premix 100 ML 52.5 ML IV ×3 (03:53→12:05)
[2025-07-25] MEDS: metoclopramide 5 mg/mL SDV 2 mL IVP ×3 (05:30→22:12)
[2025-07-25] MEDS: LORazepam 2 mg/mL INJ 1 mL 0.5 MG IVP ×2 (05:30→12:05)
[2025-07-25] MEDS: pantoprazole 40 mg SDV IVP (05:32)
--- NOTE | 2025-07-25 06:49 | P.PN_ITS ---
Subjective 2 Subjective: Has been doing okay overnight, she still some nauseous but endorses passing gas several times overnight, no abdominal pain no distention. She is hungry. Total NG output for 24 hours has been around 300 cc Vitals/I&O/Wt Last Vital Signs Temp 98.2 F 07/25/25 04:00 Pulse 110 H 07/25/25 06:00 Resp 18 07/25/25 04:00 BP 148/98 07/25/25 04:00 Pulse Ox 95 07/25/25 04:00 O2 Del Method Room Air 07/25/25 04:00 07/24/25 07/24/25 07/25/25 14:59 22:59 06:59 Intake Total 765 / 765 435 / 1200 1155 / 2355 Output Total 350 / 350 Balance 765 / 765 435 / 1200 805 / 2005 Weight last 48 hrs Weight 194 lb 2 oz Weight 183 lb 9.6 oz Weight 184 lb 15.68 oz Weight 180 lb Physical Exam 2 GI: OTHER: Abdominal examination is benign the abdomen is soft nontender nondistended there is decreased bowel sounds Data 07/25/25 02:30 07/25/25 02:30 A&P Assessment and plan 1. Intestinal adhesions with partial obstruction: 2. Nausea and vomiting: Plan: From the general surgery standpoint progression has been adequate, she still feels some nausea but is passing gas no significant abdominal pain no bowel movement yet. She does have electrolyte abnormalities this morning they are getting corrected. The plan is to do a Gastrografin trial today had extensive discussion with the patient before and instruction of Gastrografin, Gastrografin has been administered at 6:30 a.m. first x-ray will be around 11 I encouraged the patient to ambulate and if she has a bowel movement we can to get an x-ray earlier. PDMP PDMP Reviewed: Not Reviewed Attestations 2 Medical Necessity Statement*: Per medical Coding Level of Care Code Acute Code for Chg Fwd Diagnoses Intestinal adhesions with partial obstruction K56.51 Nausea and vomiting R11.2
--- NOTE | 2025-07-25 08:24 | ECG_ITS ---
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 Measurements Intervals [place] Rate: 119 P: 71 NH: 173 QRS: 7 QRSD: 81 T: 48 QT: 322 QTc: 453 Interpretive Statements SINUS TACHYCARDIA LOW QRS VOLTAGE IN PRECORDIAL LEADS [QRS DEFLECTION < 1.0 mV IN CHEST LEADS] ABNORMAL RHYTHM ECG Compared to ECG 07/23/2025 14:20:33 Ventricular premature complex(es) no longer present T-wave abnormality no longer present Electronically Signed On 07-27-2025 09:51:36 UNEMPLOYMENT CLAIMS ADJUDICATOR by Vanita Sorto M.D. [id number]
--- NOTE | 2025-07-25 09:57 | PC.SOCIAL ---
IMM Update pg 2 of IMM Updated and reviewed w/ patient. Copy provided and copy dated, initialed and placed in chart.
--- NOTE | 2025-07-25 10:35 | XRR_ITS ---
PROCEDURE INFORMATION: Exam: XR Abdomen Exam date and time: 07/25/2025 10:43 AM Age: 75 years old Clinical indication: Abdominal pain; Generalized; Additional info: Follow up gastrografin 4 hours, TECHNIQUE: Imaging protocol: Radiologic exam of the abdomen. Views: Frontal supine view of the abdomen. 1 View. COMPARISON: CT abdomen pelvis w con* [id number] 07/23/2025 3:57 PM FINDINGS: Gastrointestinal tract: Oral contrast material is now seen within the stomach, which is decompressed with possible irregular thickening of the wall, which could be due to incomplete distension. Oral contrast is seen within small and large bowel loops throughout the abdomen and pelvis. There does not appear to be significant bowel dilatation or evidence of obstruction. Bones/joints: Unremarkable. XR/XR KUB portable [id number] IMPRESSION: 1. Apparent irregular thickening of the wall of the stomach, likely due to incomplete distension. Please correlate clinically. 2. Oral contrast material seen within small and large bowel loops. No significant bowel dilatation or evidence of obstruction.
--- NOTE | 2025-07-25 13:38 | P.PN_ITS ---
Subjective 2 Subjective: Patient was seen this morning, is alert oriented x 3, following all commands, she is passing gas has not had a bowel movement, she has taken her Gastrografin early this morning Vitals/I&O/Wt Last Vital Signs Temp 98 F 07/25/25 11:41 Pulse 123 H 07/25/25 11:41 Resp 18 07/25/25 11:41 BP 148/92 07/25/25 11:41 Pulse Ox 93 07/25/25 11:41 O2 Del Method Room Air 07/25/25 11:41 07/24/25 07/25/25 07/25/25 22:59 06:59 14:59 Intake Total 435 / 1200 1155 / 2355 1105 / 1105 Output Total 350 / 350 Balance 435 / 1200 805 / 2004 1105 / 1105 Weight last 48 hrs Weight 88.054 kg Weight 83.28 kg Weight 83.906 kg Weight 81.647 kg Physical Exam 2 Const: COMMON NORMALS: no acute distress and patient oriented x3 Resp: COMMON NORMALS: normal respiratory effort, No retractions, No use of accessory muscles and clear to auscultation bilaterally AUSCULTATION: clear to auscultation bilaterally Cardio: COMMON NORMALS: regular rate, regular rhythm, S1 normal heart sound present and S2 normal heart sound present RATE: regular rate RHYTHM: r egular rhythm HEART SOUNDS: S1 normal heart sound present and S2 normal heart sound present GI: OTHER: Abdomen soft, slightly distended, good bowel sounds on the right side the abdomen, no guarding, no rebound, no rigidity Extremity: COMMON NORMALS: no pedal edema Neuro: COMMON NORMALS: patient oriented x3 Psych: COMMON NORMALS: mental status grossly normal Data 07/25/25 02:30 07/25/25 02:30 Micro: Microbiology 07/23/25 15:50 Blood Culture - Preliminary Blood NEGATIVE TO DATE 07/23/25 15:48 Blood Culture - Preliminary Blood NEGATIVE TO DATE A&P Assessment and plan 1. Hypertension: 2. Diabetes mellitus: 3. Intestinal adhesions with partial obstruction: 4. Nausea and vomiting: Zofran I&O Plan: Concerns for partial small bowel obstruction -With concerns for the adhesions -CT scan showing CT/CT abdomen pelvis w con* [id number] IMPRESSION: A localized group of distended small bowel containing gas and fluid levels is present in the left mid abdomen. The appearance raises concern for a paraduodenal hernia, without complete obstruction. Continued evaluation can include small bowel follow-through and/or close clinical and imaging follow-up. -With history of recurrent bowel obstructions requiring surgery, Plan - NG tube in place, monitor output - Zofran for nausea - Reglan for nausea - Dilaudid for pain control - Ativan for as needed anxiety -IV fluids -IV Zosyn - N.p.o. -Gastrografin study -Monitor lactic acid -Replace potassium, phosphorus - Serial abdominal exams -Type 2 diabetes mellitus, low-dose sliding scale -Hypertension, as needed hydralazine - Full code - SCDs Lovenox for DVT prophylaxis PDMP PDMP Reviewed: Not Reviewed Attestations 2 Medical Necessity Statement*: Patient requires hospitalization for partial small bowel obstruction Diagnoses Hypertension I10 Diabetes mellitus E11.9 Intestinal adhesions with partial obstruction K56.51 Nausea and vomiting R11.2
--- NOTE | 2025-07-25 13:43 | ECG_ITS ---
[facility] Test Date: 2025-07-25 Pat Name: Sherry Garcia Department: Room: 256 Gender: Female Facility Examiner: : 1950 Requested By: Clyde Sears Order Number: [id number] Nury MD: Vanita Sorto M.D. Measurements Intervals [place] Rate: 123 P: 63 UT: 161 QRS: -7 QRSD: 75 T: 33 QT: 315 QTc: 451 Interpretive Statements SINUS TACHYCARDIA LOW QRS VOLTAGE IN PRECORDIAL LEADS [QRS DEFLECTION < 1.0 mV IN CHEST LEADS] POSSIBLE ANTERIOR MYOCARDIAL INFARCTION , PROBABLY OLD [30 ms Q WAVE IN V3/V4, OR R < 0.2 mV IN V4] ABNORMAL RHYTHM ECG low voltage complexes in the precordial leads Compared to ECG 07/25/2025 09:29:11 Myocardial infarct finding now present Electronically Signed On 07-27-2025 09:48:19 DESIGN AND SALES CONSULTANT by Vanita Sorto M.D. [email or web address] [id number]
--- NOTE | 2025-07-25 14:39 | P.MISC_ITS ---
Miscellaneous Note Purpose of Documentation: Update on patient care Note: After Gastrografin administration patient has had several bowel movements, no abdominal pain, x-ray done about 3 hours ago show will contrast all the way in the colon no evidence of bowel obstruction. At this point I think her symptoms are most likely an adverse drug reaction to the Ozempic, I have encouraged her not to continue Ozempic in the future and to talk to her primary regarding alternatives. She is cleared to have full liquid diet from my standpoint she should continue Reglan 3 times a day until her symptoms resolve is probably lack of motility is one of the main sources of her symptoms. She shows understanding agrees with the plan NG tube was removed at the bedside the case was discussed with medical team. Once tolerating diet she is cleared for discharge from my [facility]
[2025-07-26 03:44] VITALS: BP 124/72; PULSE 88; RESP 16; TEMP 36.7; O2SAT 94
[2025-07-26 04:12] LABS: Hematocrit 32.8 % (36-47); Hemoglobin 10.20 g/dL (11.27-16.99); Mean Corpuscular HGB Conc 31.1 g/dL (30-55); Mean Corpuscular Hemoglobin 28.7 pg (27-33); Mean Corpuscular Volume 92.1 fl (85-98); Nucleated Red Blood Cells % 0 %; Platelet Count 294 10^3/cmm (157-399); Red Blood Count 3.56 10^6/uL (3.85-5.65); White Blood Count 7.07 10^3/uL (3.29-11.43)
[2025-07-26 04:26] LABS: Lactate (Lactic Acid level) 0.8 mmol/L (0.5-2.2)
[2025-07-26 04:27] LABS: Alanine Aminotransferase 9 U/L (0-33); Albumin Level 3.1 g/dL (3.5-5.2); Alkaline Phosphatase 96 U/L (35-105); Anion Gap 16.4 (5-19); Aspartate Amino Transferase 13 U/L (0-32); Blood Urea Nitrogen 4 mg/dL (8-23); Calcium 7.8 mg/dL (8.5-10.5); Carbon Dioxide 18 mmol/L (22-29); Chloride 110 mmol/L (98-107); Globulin 2.9 g/dL (1.3-4.6); Glucose 94 mg/dL (65-115); Magnesium 1.5 mg/dL (1.7-2.3); Osmolality Calculated 289 mOsm/kg (285-295); Potassium 3.4 mmol/L (3.5-5.1); Sodium 141 mmol/L (136-145); Total Protein 6.0 g/dL (6.6-8.7)
[2025-07-26] MEDS: venlafaxine ER (24HR) 150 mg Capsule PO (04:48)
[2025-07-26] MEDS: pantoprazole 40 mg SDV IVP (04:48)
[2025-07-26 05:29] VITALS: PULSE 92
[2025-07-26] MEDS: metoclopramide 5 mg/mL SDV 2 mL IVP (05:36)
[2025-07-26 07:37] VITALS: BP 120/72; PULSE 91; RESP 16; TEMP 36.5; O2SAT 92
--- NOTE | 2025-07-26 07:46 | P.PN_ITS ---
Subjective 2 Subjective: Has been doing okay for the last 24 hours has tolerated liquid diet has had several bowel movements and passing gas. Vitals/I&O/Wt Last Vital Signs Temp 97.7 F 07/26/25 07:37 Pulse 91 07/26/25 07:37 Resp 16 07/26/25 07:37 BP 120/72 07/26/25 07:37 Pulse Ox 92 07/26/25 07:37 O2 Del Method Room Air 07/26/25 03:44 07/25/25 07/26/25 07/26/25 22:59 06:59 14:59 Intake Total 1639.167 / 2744.167 1050 / 3794.167 Balance 1639.167 / 2744.167 1050 / 3794.167 Weight last 48 hrs Weight 191 lb Weight 194 lb 2 oz Physical Exam 2 Narrative: Patient resting in bed at the moment I came for evaluation, physical exam was deferred Data 07/26/25 03:39 07/26/25 03:39 Micro: Microbiology 07/23/25 15:50 Blood Culture - Preliminary Blood NEGATIVE TO DATE 07/23/25 15:48 Blood Culture - Preliminary Blood NEGATIVE TO DATE A&P Assessment and plan 1. Intestinal adhesions with partial obstruction: 2. Nausea and vomiting: Plan: From the general surgery standpoint there is no contraindication for advancement to above GI soft diet, if the patient is tolerating she should be able to transition to the outpatient setting. I will recommend that we continue her on Reglan 3 times a day at least for the next 2 weeks until the effects of the Ozempic completely go away. Otherwise management per primary team. General surgery will be available as needed PDMP PDMP Reviewed: Not Reviewed Attestations 2 Medical Necessity Statement*: Per medical team Coding Level of Care Code Acute Code for Chg Fwd Diagnoses Intestinal adhesions with partial obstruction K56.51 Nausea and vomiting R11.2
[2025-07-26] MEDS: magnesium sulfate premix 1 GM/100 ML PIGGYBACK IV (08:22)
[2025-07-26] MEDS: piperacillin-tazobactam 3.375 GM in sodium chloride 0.9% (plus) 50 ML IV (08:22)
[2025-07-26 11:19] VITALS: BP 145/83; PULSE 91; RESP 18; TEMP 36.3; O2SAT 94
--- NOTE | 2025-07-26 18:59 | P.DS_ITS ---
Discharge Providers Date of Admission: 07/23/25 17:01 Date of Discharge: July 26, 2025 Attending Provider at Admission: Alli Blackwell MD Attending Provider at Discharge: Clyde Sears MD Primary Care Provider: Robert Vo MD Diagnoses at Discharge Discharge Diagnosis 1. Intestinal adhesions with partial obstruction: 2. Nausea and vomiting: Reason for Visit Reason for Visit: NVD Hospital Course Hospital Course This is a 75-year-old female with a past medical history of type 2 diabetes mellitus, history of bowel obstruction secondary to intestinal adhesions, who presents to [facility] due to nausea, vomiting, abdominal pain Concerns for partial small bowel obstruction -With concerns for the adhesions -CT scan showing CT/CT abdomen pelvis w con* [id number] IMPRESSION: A localized group of distended small bowel containing gas and fluid levels is present in the left mid abdomen. The appearance raises concern for a paraduodenal hernia, without complete obstruction. Continued evaluation can include small bowel follow-through and/or close clinical and imaging follow-up. -With history of recurrent bowel obstructions requiring surgery, - Patient was admitted to [facility] secondary to bowel obstruction, versus ileus - General Surgery consulted - Received IV fluids, IV antibiotics, - Underwent Gastrografin study - Overall clinically improved, passing gas, having bowel movements - On discharge there was concerns for Ozempic side effect, decreased gastric emptying as a potential etiology behind her hospitalization - Ozempic has been discontinued on discharge - Discharged on Reglan - Instructions to drink plenty of electrolyte balanced fluids, slowly advance diet - Follow-up with primary care provider -Please monitor your blood sugars closely -Monitor your blood sugars 3 times daily as after meals -Please record your blood sugars, and a blood sugar log -For your NovoLog -Please inject blood sugar after meals based on sliding scale provided -Do not inject insulin if you do not eat as hypoglycemia kills -This is a NovoLog sliding scale -Insulin sliding ?fingerstick? Insulin ?141-180?0 units/sq 181-220?2 units/sq ?221-260?4 units/sq ?261-300 6 units/sq ?301-350?8 units/sq ?351-400 10 units/sq ?401-450?12 units/sq >450? 14units/sq -If your blood sugar is greater than 500 go to the emergency room -If your blood sugar is less than 60 or at anytime you feel lightheaded or dizzy or diaphoretic or have chest palpitations check your blood sugar, and eat a hard candy or drink orange juice and go immediately to the emergency room -Remember hypoglycemia kills, so if his blood sugar is less than 60 we have to increase it by taking in a sugary meal such as a hard candy or orange juice and go to the emergency room -If you have any questions please call us where here to help - Please follow-up with primary care provider - Please use Reglan for nausea/vomiting/gastroparesis - Monitor for tardive dyskinesia which are uncontrollable and involuntary muscle movements if so come back to the emergency room - You are on duloxetine and venlafaxine, which we should avoid using together due to risk of serotonin syndrome, discussed with primary care provider on potentially weaning you off one of them based upon your shared decision making - Hydrate well Physical Exam Const: COMMON NORMALS: no acute distress and patient oriented x3 Resp: COMMON NORMALS: normal respiratory effort, No retractions, No use of accessory muscles and clear to auscultation bilaterally AUSCULTATION: clear to auscultation bilaterally Cardio: COMMON NORMALS: regular rate, regular rhythm, S1 normal heart sound present and S2 normal heart sound present RATE: regular rate RHYTHM: regular rhythm HEART SOUNDS: S1 normal heart sound present and S2 normal heart sound present GI: COMMON NORMALS: Normal to inspection, nondistended, normoactive bowel sounds present and non-tender Extremity: COMMON NORMALS: no pedal edema Neuro: COMMON NORMALS: patient oriented x3 Psych: COMMON NORMALS: mental status grossly normal Discharge Data Studies Completed and Pending Completed Studies During Hospitalization Category Date Time Status CT abdomen pelvis w con* [id number] Stat Cat Scan 07/23/25 15:41 Completed XR KUB portable [id number] Routine Exams 07/25/25 10:35 Completed XR acute abdomen series [id number] Stat Exams 07/23/25 14:24 Completed XR chest 1V portable [id number] Stat Exams 07/23/25 18:05 Completed Pending at discharge Category Date Time Status Blood Culture Stat Lab 07/23/25 15:50 Results Radiology Impressions Chest/Abdomen X-ray 07/23/25 14:24 IMPRESSION: 1. Single mildly dilated, gas-filled loop of small bowel in the central abdomen. The nonspecific appearance could reflect ileus, enteritis or early/partial obstruction. 2. No acute disease otherwise identified. Abdomen/Pelvis CT 07/23/25 15:41 IMPRESSION: A localized group of distended small bowel containing gas and fluid levels is present in the left mid abdomen. The appearance raises concern for a paraduodenal hernia, without complete obstruction. Continued evaluation can include small bowel follow-through and/or close clinical and imaging follow-up. Chest X-Ray 07/23/25 18:05 IMPRESSION: 1. Interval development of mild interstitial thickening which represents atelectatic, compressive changes or mild edema. Developing left lung base infiltrate is a possibility. 2. NG tube in place. KUB X-Ray 07/25/25 10:35 IMPRESSION: 1. Apparent irregular thickening of the wall of the stomach, likely due to incomplete distension. Please correlate clinically. 2. Oral contrast material seen within small and large bowel loops. No significant bowel dilatation or evidence of obstruction. Laboratory Results WBC 7.07 10^3/uL (3.29-11.43) 07/26/25 03:39 RBC 3.56 10^6/uL (3.85-5.65) L 07/26/25 03:39 Hgb 10.20 g/dL (11.27-16.99) L 07/26/25 03:39 Hct 32.8 % (36-47) L 07/26/25 03:39 MCV 92.1 fl (85-98) 07/26/25 03:39 MCH 28.7 pg (27-33) 07/26/25 03:39 MCHC 31.1 g/dL (30-55) 07/26/25 03:39 RDW 13.0 % (12.1-15.1) 07/26/25 03:39 Plt Count 294 10^3/cmm (157-399) 07/26/25 03:39 MPV 10.0 fL (7.4-10.4) 07/26/25 03:39 Neut % (Auto) 41.7 % 07/26/25 03:39 Lymph % (Auto) 41.4 % 07/26/25 03:39 [place] % (Auto) 10.7 % 07/26/25 03:39 Eos % (Auto) 4.7 % 07/26/25 03:39 Baso % (Auto) 1.4 % 07/26/25 03:39 Neut # (Auto) 2.94 10^3/uL (1.8-7.7) 07/26/25 03:39 Lymph # (Auto) 2.9 10^3/uL (0.8-4.8) 07/26/25 03:39 Stanton # (Auto) 0.8 10^3/uL (0.2-0.9) 07/26/25 03:39 Eos # (Auto) 0.3 10^3/uL (0.0-0.8) 07/26/25 03:39 Baso # (Auto) 0.1 10^3/uL (0.0-0.1) 07/26/25 03:39 Nucleated RBC % (auto) 0 % 07/26/25 03:39 Nucleated RBCs # 0.0 /100WBC 07/26/25 03:39 Sodium 141 mmol/L (136-145) 07/26/25 03:39 Potassium 3.4 mmol/L (3.5-5.1) L 07/26/25 03:39 Chloride 110 mmol/L (98-107) H 07/26/25 03:39 Carbon Dioxide 18 mmol/L (22-29) L 07/26/25 03:39 Anion Gap 16.4 (5-19) 07/26/25 03:39 BUN 4 mg/dL (8-23) L 07/26/25 03:39 Creatinine 0.8 mg/dL (0.5-0.9) 07/26/25 03:39 GFR Calculation Not Reportable 07/26/25 03:39 Glucose 94 mg/dL (65-115) 07/26/25 03:39 POC Glucose 93 mg/dL (70-110) 07/26/25 06:11 Estimat Average Glucose 160 07/24/25 03:22 Hemoglobin A1c 7.2 % (4.0-6.0) H 07/24/25 03:22 Calculated Osmolality 289 mOsm/kg (285-295) 07/26/25 03:39 Lactic Acid 2.9 mmol/L (0.5-2.2) H 07/23/25 14:13 Lactic Acid (Sepsis) 2.6 mmol/L (0.5-2.2) H 07/23/25 15:50 Lactate 0.8 mmol/L (0.5-2.2) 07/26/25 03:39 Calcium 7.8 mg/dL (8.5-10.5) L 07/26/25 03:39 Phosphorus 2.4 mg/dL (2.5-4.5) L 07/26/25 03:39 Magnesium 1.5 mg/dL (1.7-2.3) L 07/26/25 03:39 Total Bilirubin 0.4 mg/dL (0.15-1.2) 07/26/25 03:39 AST 13 U/L (0-32) 07/26/25 03:39 ALT 9 U/L (0-33) 07/26/25 03:39 Alkaline Phosphatase 96 U/L (35-105) 07/26/25 03:39 Total Protein 6.0 g/dL (6.6-8.7) L 07/26/25 03:39 Albumin 3.1 g/dL (3.5-5.2) L 07/26/25 03:39 Globulin 2.9 g/dL (1.3-4.6) 07/26/25 03:39 Lipase 23 U/L (13-60) 07/23/25 14:13 Urine Color Yellow (Yellow) 07/23/25 15: Urine Appearance Cloudy (CLEAR) A 07/23/25 15:23 Urine pH 6.0 (5-7) 07/23/25 15:23 Ur Specific [place] 1.019 (1.005-1.030) 07/23/25 15: Urine Protein 1+ (Negative) A 07/23/25 15: Urine Glucose (UA) Trace (Normal) H 07/23/25 15: Urine Ketones 2+ (Negative) H 07/23/25 15: Urine Blood Negative (Negative) 07/23/25 15: Urine Nitrate Negative (Negative) 07/23/25 15: Urine Bilirubin Negative (Negative) 07/23/25 15: Urine Urobilinogen 1.0 mg/dL (Negative) 07/23/25 15: Ur Leukocyte Esterase 2+ (Negative) A 07/23/25 15: Urine RBC 0-2 /hpf (0-2) 07/23/25 15:23 Urine WBC 0-5 /hpf (0-5) 07/23/25 15:23 Ur Squamous Epith Cells 11-20 /hpf (0-5) H 07/23/25 15:23 Amorphous Sediment Not Reportable 07/23/25 15:23 Urine Bacteria None seen /hpf (NONE) 07/23/25 15:23 Hyaline Casts 21.92 /lpf 07/23/25 15:23 Vitals Last Vital Signs Temp 97.4 F L 07/26/25 11:19 Pulse 91 07/26/25 11:19 Resp 18 07/26/25 11:19 BP 145/83 07/26/25 11:19 Pulse Ox 94 07/26/25 11:19 O2 Del Method Room Air 07/26/25 03:44 Discharge Plan Discharge Patient Disposition: Home Condition: Stable Prescriptions: New insulin aspart U-100 [Novolog FlexPen U-100 Insulin] 100 unit/mL (3 mL) insulin pen See Rx Instructions .ROUTE .COMPLEX Qty: 15 0RF Rx Instructions: Inject, subcut, 3 times daily, after meals, based on low-dose sliding scale metoclopramide HCl [Reglan] 5 mg tablet 5 mg PO Q8H PRN (Reason: nausea and vomiting) 10 Days Qty: 30 0RF Rx Instructions: Please monitor for tardive dyskinesia, if any involuntary/uncontrollable muscle movements, stop taking medications and come to the emergency room Continued losartan 50 mg tablet 50 mg PO DAILY atorvastatin 10 mg tablet 10 mg PO DAILY venlafaxine 150 mg capsule,extended release 24hr 150 mg PO DAILY tramadol 50 mg tablet 50 - 100 mg PO QID PRN (Reason: Pain) alprazolam 0.25 mg tablet 0.25 mg PO QID metoprolol tartrate 50 mg tablet 50 mg PO BID nitroglycerin 0.4 mg tablet, sublingual 0.4 mg sublingual .Q5MIN PRN (Reason: unstable angina) gabapentin 300 mg capsule 300 mg PO BID omeprazole 20 mg capsule,delayed release(DR/EC) 20 mg PO DAILY hydroxyzine HCl 25 mg tablet 25 mg PO QID PRN (Reason: Anxiety) metformin 500 mg tablet extended release 24 hr 500 mg PO BID cyclobenzaprine 5 mg tablet 5 mg PO TID PRN (Reason: Muscle Spasm) duloxetine 60 mg capsule,delayed release(DR/EC) 60 mg PO DAILY Discontinued glimepiride 2 mg tablet 2 mg PO DAILY Ozempic 2 mg/dose (8 mg/3 mL) pen injector 8 mg SUBCUT Q7D Discharge Order = DC NOW: Discharge Order (Routine); Ordered 07/26/25 Ordered By: Clyde Sears Referrals: Ry Deutsch MD [Physician, General Surgery] - 08/08/25 8:40 am Robert Vo MD [Primary Care Provider, Family Practice] - 08/01/25 2:30 pm Discharge Diet: Cardiac Discharge Activity: Resume usual activity Patient Instructions: Type 2 Diabetes, Insulin Aspart, Recombinant (By injection) (Novolog, Novolog..., Hypokalemia (DC), Acute Nausea and Vomiting (GEN), Bowel Obstruction (DC), Type 2 Diabetes in the Older Adult (GEN), Opioid Safety, Patient Portal & Mu Instructions Activity Restrictions/Additional Instructions: -Please monitor your blood sugars closely -Monitor your blood sugars 3 times daily as after meals -Please record your blood sugars, and a blood sugar log -For your NovoLog -Please inject blood sugar after meals based on sliding scale provided -Do not inject insulin if you do not eat as hypoglycemia kills -This is a NovoLog sliding scale -Insulin sliding ?fingerstick? Insulin ?141-180?0 units/sq 181-220?2 units/sq ?221-260?4 units/sq ?261-300 6 units/sq ?301-350?8 units/sq ?351-400 10 units/sq ?401-450?12 units/sq >450? 14units/sq -If your blood sugar is greater than 500 go to the emergency room -If your blood sugar is less than 60 or at anytime you feel lightheaded or dizzy or diaphoretic or have chest palpitations check your blood sugar, and eat a hard candy or drink orange juice and go immediately to the emergency room -Remember hypoglycemia kills, so if his blood sugar is less than 60 we have to increase it by taking in a sugary meal such as a hard candy or orange juice and go to the emergency room -If you have any questions please call us where here to help - Please follow-up with primary care provider - Please use Reglan for nausea/vomiting/gastroparesis - Monitor for tardive dyskinesia which are uncontrollable and involuntary muscle movements if so come back to the emergency room - You are on duloxetine and venlafaxine, which we should avoid using together due to risk of serotonin syndrome, discussed with primary care provider on poten tially weaning you off one of them based upon your shared decision making - Hydrate well Discharge Attestations Time Spent in Discharge Care*: greater than 30 min Quality Metrics Clinical Quality Measures [ No reported AMI, CVA or VTE this stay] Coding Level of Care Code 51916 Total time (in minutes) for Discharge: 45 Diagnoses Intestinal adhesions with partial obstruction K56.51 Nausea and vomiting R11.2
== END 2025-07-26 11:45 | disposition home or self-care (01) | DRG 390 ==
LOC: ER 14:41 → MEDSURG 17:14
PROVIDERS: Clinical Nurse Specialist Acute Care; Surgery; Admitting Provider Family Medicine; Emergency Provider Family Medicine; PCP Family Medicine; Visit Provider Family Medicine
DX: K56.51 Intestinal adhesions [bands], with partial obstruction (principal); E11.9 Type 2 diabetes mellitus without complications; K56.7 Ileus, unspecified; I10 Essential (primary) hypertension; Z79.84 Long term (current) use of oral hypoglycemic drugs; Z79.4 Long term (current) use of insulin; Z79.85 Long-term (current) use of injectable non-insulin antidiabetic drugs
CPT/HCPCS: 36415; 36416; 71045; 74018; 74022; 74177; 80053; 81001; 82962; 83036; 83605; 83690; 83735; 84100; 85025; 87040; 93005; 96365; 96372; 96375; 99285; J1171; J1650; J1815; J2060; J2270; J2405; J2470; J2543; J2765; J3475; J3480; J3490; J7030; J9999; Q9963